=== PATIENT | female | born 1980 | race Asian ===

== ENCOUNTER 2022-08-14 11:03 | Day surgery (SDC) | payer OTHER ==
[~2022-08-14] VITALS: Ht 152.4 cm; Wt 77.1 kg
[2022-08-14 12:01] LABS: HCG,QUAL RESULT NEGATIVE (NEGATIVE)
[2022-08-14] MEDS ORDERED: SEVOFLURANE 15 MIN GAS INH ONE (12:25)
[2022-08-14] MEDS ORDERED: PROPOFOL 200MG/ 20ML VIAL (DIPRIVAN) IV ONE (12:25)
[2022-08-14] MEDS ORDERED: LIDOCAINE 2%, 20 ML MDV ONE (12:25)
[2022-08-14] MEDS ORDERED: ONDANSETRON HCL 4 MG/2 ML VIAL ONE (12:25)
[2022-08-14] MEDS ORDERED: KETOROLAC TROMETHAMINE 30 MG VIAL ONE (12:25)
[2022-08-14] MEDS ORDERED: LR 1,000 ML IV.SOLN IV ONE (12:25)
[2022-08-14] MEDS ORDERED: METOCLOPRAMIDE HCL 10 MG/2 ML VIAL IVP PRN (13:00)
[2022-08-14] MEDS ORDERED: HYDROmorphone 1 MG/ML INJ. CARTRIDGE IVP PRN (13:00)
[2022-08-14] MEDS ORDERED: KETOROLAC TROMETHAMINE 30 MG VIAL IVP PRN (13:00)
[2022-08-14] MEDS ORDERED: IBUPROFEN 600 MG TABLET PO ONE (13:00)
[2022-08-14] MEDS ORDERED: ONDANSETRON HCL 4 MG/2 ML VIAL IVP PRN (13:00)
[2022-08-14 15:49] VITALS: BP_SYST 140
== END 2022-08-14 15:03 | disposition home or self-care (01) ==
LOC: SDS 11:03 → SMU 11:04 → SDS 15:03
PROVIDERS: ATTEND Obstetrics & Gynecology
DX: N92.0 Excessive and frequent menstruation with regular cycle (principal); J45.909 Unspecified asthma, uncomplicated; E66.9 Obesity, unspecified; Z68.33 Body mass index [BMI] 33.0-33.9, adult; Z79.899 Other long term (current) drug therapy
CPT/HCPCS: 87081; 58563; 84703; J1885; J2001; J2405; J2704; J7120